=== PATIENT | female | born 1970 | race Caucasian/White ===

== ENCOUNTER → 2016-12-17 | Outpatient (CLI) | payer OTHER ==
--- NOTE | 2016-12-17 11:44 | RADIOLOGY REPORT (SQ) ---
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 TECHNIQUE: Multiplanar imaging includes non-contrasted T1, T2, FLAIR, diffusion with ADC map and pos t gadolinium contrast T1 sequences. Thin sections through the pituitary fossa pre and post contrast. Images stored on PACS. CONTRAST TYPE AND DOSE: 15 mL Multihance. RENAL FUNCTION: None required. The patient is less than 50 years old. LIMITATIONS: None. FINDINGS: ANATOMY: There is asymmetry in the pituitary but no evidence of nodule. Infundibulum is n ear midline. CSF SPACES: Normal in size and contour. No hemorrhage. PITUITARY FOSSA: No masses. No asymmetry. Infundibulum midline. CEREBRUM: Sulci and gyri normal in size and contour. Normal white matter signal on FLAIR imaging. No evidence of hemorrhage, mass, or extraaxial fluid collection. No abnormal enhancement post contrast. POSTERIOR FOSSA: No signal alteration. No hemorrhage. No edema, masses, or mass effect. Internal aud itory canals, cerebello-pontine angles, mastoids normal. No enhancing lesions. ORBITS: No masses. Globes normal. PARANASAL SINUSES: No fluid levels. Mucosa normal. OTHER: No other significant finding. IMPRESSION: NORMAL MRI OF THE BRAIN AND PITUITARY FOSSA WITHOUT AND WITH INTRAVENOUS GADOLINIUM CONT RAST. TECHNICAL DOCUMENTATION: JOB ID: [id number] [employer]- All Rights Reserved
== END ==
LOC: RAD 07:00
PROVIDERS: ATTEND Physician Assistant
DX: E22.9 Hyperfunction of pituitary gland, unspecified (principal)
CPT/HCPCS: 70553; A9577